=== PATIENT | female | born 2005 | race Caucasian/White ===

== ENCOUNTER 2023-09-11 11:10 | Emergency (ER) | payer BC, SELFPAY ==
[2023-09-11 11:22] VITALS: BP 157/87; PULSE 96; RESP 20; TEMP 36.7; O2SAT 99; BMI 23.0
--- NOTE | 2023-09-11 12:27 | ED.GENADULT ---
HPI - General Adult General Chief complaint: Head Injury/Pain Stated complaint: Concussion, possible hairline fracture Time Seen by Provider: 09/11/23 11:36 History of Present Illness HPI narrative: This 18-year-old female comes in after checking in with the school nurse. 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 The pad hit into her chin and her head jerked backwards. She did not have loss of consciousness. She initially felt a mild headache that has now completely resolved. She did not have any neck pain yesterday but this morning began to have some discomfort in her neck. She was sent here by recommendation of the school nurse who thought that there may be some injury to her spine. Related Data Home Medications Medication Instructions Recorded Confirmed control 09/11/23 Previous Rx's Medication Instructions Recorded cyclobenzaprine 10 mg tablet 10 mg PO TID #15 tabs 09/11/23 ketorolac 10 mg tablet 10 mg PO Q8H 5 days #15 tabs 09/11/23 Allergies Allergy/AdvReac Type Severity Reaction Status Date / Time amoxicillin AdvReac Intermediate Rash Verified 09/11/23 11:21 Review of Systems Status of ROS: Reports: 10 or more systems reviewed and unremarkable except as noted in History and below Narrative: Constitutional: No fevers, no weight gain or loss. Eyes: No discharge. No vision changes. HENT: No congestion, no sore throat, no ear pain. Cardiovascular: No chest pain, no palpitations. Respiratory: No shortness of breath, no wheezes, no cough. Gastrointestinal: No abdominal pain, no vomiting, no diarrhea. Genitourinary: No dysuria, no hematuria. Musculoskeletal: Normal range of motion. Skin: No rashes, no pruritis. Neurological: No dizziness, weakness, sensory change, speech change. Endo/Heme/Allergies: No bruising or bleeding. No polydipsia. Pysch: no suicidality, no anxiety, no insomnia. All other systems reviewed and are negative. PFSH PFSH Social History Smoking Status: Never smoker How often do you have a drink containing alcohol: never AUDIT-C Alcohol total score: 0 Non-prescribed substance use: denies use Exam Narrative: Exam Narrative: Constitutional: Well-developed, well-nourished, no acute distress. HEENT: Normocephalic, atraumatic. Neck: Normal range of motion. Nontender. Supple. No midline tenderness when palpating along the neck and the spine. Heart: Regular. No murmurs. Normal rate. Intact distal pulses. Lungs: Clear to auscultation. No chest discomfort. No wheezes, rhonchi, or rales. Abdomen: Normal bowel sounds. Nontender. No rebound tenderness. Genitalia: Deferred. Back: No midline tenderness. Normal range of motion. Extremities: Normal range of motion. No injury. Skin: Intact. No rash. Warm. No erythema or pallor. Neurologic: No altered sensation. No weakness. Alert and oriented. [id number] is normal. Complaint Operator strength is equal bilaterally. No pronator drift. Psychiatric: No suicidality. No anxiety or depression. No insomnia. Nursing notes and vitals signs are reviewed. Const: Vital Signs, click to edit/add: Vital Signs - 24 hr 09/11/23 11:22 Temperature 98.0 F Pulse Rate [Pulse Oximeter] 96 Respiratory Rate 20 Blood Pressure [Le ft Forearm] 157/87 H Pulse Oximetry 99 Course Vital Signs Vital signs: Initial Vital Signs Temperature 98.0 F 09/11/23 11:22 Temperature Source Temporal Artery Scan 09/11/23 11:22 Pulse Rate 96 09/11/23 11:22 Respiratory Rate 20 09/11/23 11:22 Blood Pressure 157/87 H 09/11/23 11:22 Blood Pressure Mean 110 H 09/11/23 11:22 Pulse Oximetry 99 09/11/23 11:22 Vital Signs Temperature 98.0 F 09/11/23 11:22 Pulse Rate 96 09/11/23 11:22 Respiratory Rate 20 09/11/23 11:22 Blood Pressure 157/87 H 09/11/23 11:22 Pulse Oximetry 99 09/11/23 11:22 Temperature 98.0 F 09/11/23 11:22 Pulse Rate 96 09/11/23 11:22 Respiratory Rate 20 09/11/23 11:22 Blood Pressure 157/87 H 09/11/23 11:22 Pulse Oximetry 99 09/11/23 11:22 Medical Decision Making MDM Narrative Medical decision making narrative: This patient has some diffuse neck pain after an injury that occurred yesterday. She has normal range of motion of her neck. She does not have any midline tenderness. I did review nexus rules for head and neck injury and stated reassurance regarding her exam compared with those guidelines. I did offer imaging studies nevertheless and she and her parents in a process of shared decision-making declined any imaging at this time. The patient is okay to be discharged home and did received prescription for Toradol and Flexeril. Discharge Plan Discharge Clinical Impression: Neck muscle strain Patient Disposition: Home, Self-Care Condition: Stable Additional Instructions: Take medication as needed and indicated. Increase activity as tolerated. Follow up with MD or return if worsening. Prescriptions: New cyclobenzaprine 10 mg tablet 10 mg PO TID Qty: 15 0RF ketorolac 10 mg tablet 10 mg PO Q8H 5 Days Qty: 15 0RF No Action control Follow Up/Referrals: Provider,Not a Local [Primary Care Provider] - Stand Alone Forms: [employer] Info Instructions
== END 2023-09-11 12:40 | disposition home or self-care (01) ==
PROVIDERS: Emergency Provider Emergency Medicine Emergency Medical Services
DX: S16.1XXA Strain of muscle, fascia and tendon at neck level, initial encounter (principal); Y93.63 Activity, rugby
CPT/HCPCS: 99283; 99284